=== PATIENT | male | born 1985 | race African-American/Black ===

== ENCOUNTER 2023-10-23 22:12 | Emergency (ER) | payer OTHER ==
[~2023-10-23] VITALS: Ht 170.2 cm; Wt 87.8 kg
[2023-10-23 23:04] VITALS: BP 112/75; PULSE 75; RESP 18; TEMP 98.1; O2SAT 100
[2023-10-24 00:35] LABS: EOSINOPHILS % 0.8 % (0.0-5.0); HEMATOCRIT. 46.7 % (42.0-52.0); HEMOGLOBIN. 15.2 g/dL (14.0-18.0); LYMPHOCYTES % 22.9 % (20.0-50.0); MEAN CORPUSCULAR HEMOGLOBIN 30.5 pg (28.0-32.0); MEAN CORPUSCULAR HGB CONC 32.6 g/dL (31.0-37.0); MEAN CORPUSCULAR VOLUME 93.5 fL (80.0-94.0); MEAN PLATELET VOLUME 9.1 fl (7.4-10.4); MONOCYTES % 5.5 % (2.0-8.0); NEUTROPHILS % 69.8 % (40.0-76.0); PLATELET 238 x1000/uL (130-400); RED CELL DISTRIBUTION WIDTH 15.3 % (11.6-14.6); WHITE BLOOD COUNT 8.2 x1000/uL (4.5-11.0)
[2023-10-24 00:42] LABS: CLARITY URINE CLEAR (CLEAR); COLOR URINE YELLOW (YELLOW); GLUCOSE URINE NEGATIVE (NEGATIVE); KETONES URINE NEGATIVE (NEGATIVE); LEUKOCYTE ESTERASE URINE NEGATIVE (NEGATIVE); NITRITE URINE NEGATIVE (NEGATIVE); OCCULT BLOOD URINE NEGATIVE (NEGATIVE); PH URINE 5.5 (4.5-8.0); PROTEIN URINE NEGATIVE (NEGATIVE); SPECIFIC GRAVITY URINE 1.022 (1.005-1.030); UROBILINOGEN URINE 0.2 E.U./dL (0.2-1.0)
[2023-10-24 01:02] LABS: ALANINE AMINOTRANSFERASE 35 IU/L (10-49); ALBUMIN 4.6 g/dL (3.2-4.8); ASPARTATE AMINOTRANSFERASE 26 IU/L (<34); BILIRUBIN TOTAL 0.8 mg/dL (0.1-1.0); CALCIUM 9.4 mg/dL (8.7-10.4); CARBON DIOXIDE 29 mEq/L (21-32); CHLORIDE 105 mEq/L (98-107); CREATININE 1.2 mg/dL (0.6-1.3); GLUCOSE 82 mg/dL (70-105); PROTEIN TOTAL 7.9 g/dL (6.0-8.3); SODIUM 138 mEq/L (136-145); UREA NITROGEN BLOOD 9 mg/dL (9-23)
[2023-10-24 02:08] LABS: CREATINE KINASE 503 IU/L (46-171)
== END 2023-10-24 02:56 | disposition home or self-care (01) ==
LOC: ER 22:12
DX: R79.9 Abnormal finding of blood chemistry, unspecified (principal); Z13.89 Encounter for screening for other disorder
CPT/HCPCS: 36415; 80053; 81003; 82550; 85025; 99283